=== PATIENT | male | born 2000 | race African-American/Black ===

== ENCOUNTER 2021-03-07 04:06 | Observation (INO) | payer MEDICAID, OTHER ==
[~2021-03-07] VITALS: Ht 188 cm; Wt 115.8 kg
[2021-03-07 06:35] LABS: BASOPHILS % (AUTO) 1 % (0-1); EOSINOPHILS % (AUTO) 1 % (1-7); LYMPHOCYTES % (AUTO) 18 % (22-44); MEAN CORPUSCULAR HEMOGLOBIN 29.7 pg (27.5-34.5); MEAN CORPUSCULAR HGB CONC 34.4 g/dL (33.2-36.2); MEAN PLATELET VOLUME 7.9 fL (7.4-10.4); MONOCYTES % (AUTO) 7 % (2-9); NEUTROPHILS % (AUTO) 73 % (42-75); PLATELET COUNT 303 x10^3/uL (130-400); RED BLOOD COUNT 5.72 x10^6/uL (4.38-5.82); RED CELL DISTRIBUTION WIDTH 13.2 % (9.4-14.8)
[2021-03-07 06:38] LABS: AMPHETAMINE SCREEN, URINE Negative (Negative); BARBITURATE SCREEN, URINE Negative (Negative); BENZODIAZEPINE SCREEN, URINE Negative (Negative); CANNABINOID SCREEN, URINE Positive (Negative); COCAINE SCREEN, URINE Negative (Negative); METHADONE SCREEN, URINE Negative (Negative); OPIATE SCREEN, URINE Negative (Negative)
[2021-03-07 06:41] LABS: MD NO
[2021-03-07 06:43] LABS: ALBUMIN 4.2 g/dL (3.4-5.0); ANION GAP 6 mmol/L (5-15); CALCIUM 8.5 mg/dL (8.5-10.1); CHLORIDE 110 mmol/L (98-107); CREATININE 1.01 mg/dL (0.7-1.3)
[2021-03-07 06:48] LABS: SALICYLATE LEVEL < 1.7 mg/dL (2.8-20.0)
--- NOTE | 2021-03-07 07:10 | NUR ---
REPORT FROM [facility]ICES, ASSUME CARE OF PT AT THIS TIME. PT SLEEPING, NAD, SITTER AT DOORWAY
--- NOTE | 2021-03-07 08:08 | NUR ---
PT SLEEPING, NAD, SITTER AT DOORWAY.
--- NOTE | 2021-03-07 08:18 | NUR ---
ED DIET TRAY PROVIDED.
--- NOTE | 2021-03-07 08:48 | NUR ---
Report received and care assumed. Pt standing in doorway speaking with sitter. Awaiting psych eval.
[2021-03-07 09:57] VITALS: BP 135/75
--- NOTE | 2021-03-07 10:50 | NUR ---
DATA ENTRY OPERATOR for psych at bedside for evaluation at this time.
[2021-03-07] MEDS ORDERED: ARIPIPRAZOLE 10 MG TABLET PO ONE (11:30)
[2021-03-07] MEDS ORDERED: ARIPIPRAZOLE 400 MG INJ NC IM ONE (11:30)
[2021-03-07] MEDS ORDERED: ARIPIPRAZOLE 10 MG TABLET ONE (11:38)
--- NOTE | 2021-03-07 11:48 | NUR ---
PO Abilify given at this time. No push back from pt. Pt notified of wait for IM medication from pharmacy and discussion with Sports Medicine Coordinator before d/c. Pt states understanding of these.
--- NOTE | 2021-03-07 12:00 | NUR ---
Lunch tray brought to bedside for pt.
--- NOTE | 2021-03-07 12:10 | NUR ---
Abikyleighy injection ready for pickup from pharmacy. Still awaiting SW assessment for helping get pt back to [place] as discussed with APPLE PRESS OPERATOR, pt's mother in [facility], and pt.
--- NOTE | 2021-03-07 12:14 | NUR ---
Pt in doorway asking for psych BUCKLE COVERER. This RN able to hear pt from another pt's room and unable to visualize pt at this time due to other pt's current condition/needs. PSA sitter for another room overheard speaking with pt.
--- NOTE | 2021-03-07 12:49 | NUR ---
Pt given Abilify IM with aseptic technique after prolonge discussion with friend via telephone about natural living and obsession with girls.
--- NOTE | 2021-03-07 13:03 | NUR ---
SW states she will have to revisit pt shortly after arrangement for another pt are completed.
[2021-03-07] MEDS ORDERED: ARIP10TA33 PO (13:18)
[2021-03-07] MEDS ORDERED: ARIP400S3 IM (13:21)
== END 2021-03-07 16:19 | disposition home or self-care (01) ==
LOC: ED 08:39 → EDIP 09:10
PROVIDERS: ADMIT Emergency Medicine; ATTEND Emergency Medicine
DX: F25.9 Schizoaffective disorder, unspecified (principal); F17.200 Nicotine dependence, unspecified, uncomplicated; Z87.828 Personal history of other (healed) physical injury and trauma; Z91.14 Patient's other noncompliance with medication regimen; Z79.899 Other long term (current) drug therapy
CPT/HCPCS: 36415; 80048; 80299; 80307; 80320; 80329; 82040; 84443; 85025; 87491; 87591; 96372; 99284; G0378; G0480